=== PATIENT | male | born 1980 | race Two or more races ===

== ENCOUNTER 2016-04-25 23:14 | Emergency (ER) | payer MEDICAID, OTHER ==
[~2016-04-25] VITALS: Ht 167.6 cm; Wt 81.6 kg
[2016-04-25 23:25] VITALS: BP 147/72
[2016-04-26 00:11] LABS: BASOPHILS % (AUTO) 2.1 % (0.0-2.0); EOSINOPHILS % (AUTO) 6.2 % (0.0-3.0); LYMPHOCYTES % (AUTO) 30.2 % (20.0-45.0); MEAN CORPUSCULAR HEMOGLOBIN 30.6 PG (27.0-31.0); MEAN CORPUSCULAR HGB CONC 35.3 G/DL (32.0-36.0); MEAN CORPUSCULAR VOLUME 87 FL (80-99); MEAN PLATELET VOLUME 7.4 FL (6.5-10.1); MONOCYTES % (AUTO) 7.6 % (1.0-10.0); NEUTROPHILS % (AUTO) 53.9 % (45.0-75.0); PLATELET COUNT 125 K/UL (150-450); RED BLOOD COUNT 4.48 M/UL (4.70-6.10); RED CELL DISTRIBUTION WIDTH 11.3 % (11.6-14.8); WHITE BLOOD COUNT 6.2 K/UL (4.8-10.8)
[2016-04-26 00:28] LABS: ALANINE AMINOTRANSFERASE 38 U/L (3-41); ALBUMIN/GLOBULIN RATIO 1.7 (1.0-2.7); ANION GAP 16 (5-15); ASPARTATE AMINO TRANSFERASE 24 U/L (5-40); CALCIUM 9.1 mg/dL (8.6-10.2); CARBON DIOXIDE 26 mEQ/L (20-30); CHLORIDE 98 mEQ/L (98-107); GLOMERULAR FILTRATION RATE > 60 mL/min (>60); HEMOLYSIS 8; LIPASE 38 U/L (< 60); POTASSIUM 4.1 mEQ/L (3.4-4.9); SODIUM 140 mEQ/L (135-145); TOTAL PROTEIN 6.6 g/dL (6.6-8.7)
[2016-04-26 00:30] VITALS: BP 138/75
[2016-04-26 00:30] LABS: TROPONIN I < 0.30 ng/mL (<=0.30)
[2016-04-26] MEDS ORDERED: LORazepam Inj 2mg/ml 1ml IV ONE (01:15)
[2016-04-26 02:30] VITALS: BP 134/78
[2016-04-26 02:40] LABS: APPEARANCE,URINE CLEAR; KETONES,URINE NEGATIVE (NEGATIVE); LEUKOCYTE ESTERASE ,URINE NEGATIVE (NEGATIVE); NITRITE,URINE NEGATIVE (NEGATIVE); PH,URINE 7 (4.5-8.0); PROTEIN,URINE NEGATIVE (NEGATIVE); UROBILINOGEN,URINE 1 MG/DL (0.0-1.0)
[2016-04-26] MEDS ORDERED: MECLIZINE HCL25 MG ORAL (02:44)
--- NOTE | 2016-04-26 02:45 | Emergency Room Report ---
History of Present Illness General Chief Complaint: Dizziness Source: Patient, Medical Record, EMS Present Illness HPI Is a 36-year-old male with a history of mental delay. He lives in a boarding care. He came home from his father's house after dinner. He did not have any symptom until later in the evening. He started complaining of dizziness. Described as room spinning. Worse with turning his head. When he got here, he had nausea and vomiting. No abdominal pain. No fever or chills. Never had this problem before. No other symptoms. Allergies: Coded Allergies: No Known Allergies (Unverified , 02/07/13) Patient History Past Medical History: see triage record, old chart reviewed Past Surgical History: other Pertinent Family History: none Social History: Denies: smoking Immunizations: other Reviewed Nursing Documentation: PMH: Agreed, PSxH: Agreed Nursing Documentation-PMH Hx Hypertension: Yes Hx Pacemaker: Yes Hx Seizures: Yes Review of Systems Eye: Denies: blurred vision, eye pain ENT: Denies: ear pain, nose congestion, throat swelling Respiratory: Denies: cough, shortness of breath Cardiovascular: Denies: chest pain, palpitations Gastrointestinal: Reports: nausea, vomiting, Denies: abdominal pain, diarrhea Musculoskeletal: Denies: back pain, joint pain Skin: Denies: rash Neurological: Denies: headache, numbness Endocrine: Denies: increased thirst, increased urine Hematologic/Lymphatic: Denies: easy bruising All Other Systems: negative except mentioned in HPI Physical Exam Vital Signs Date Time Temp Pulse Resp B/P Pulse Ox O2 Delivery O2 Flow Rate FiO2 04/25/16 23:18 97.5 60 18 131/87 96 Room Air vitals normal Sp02 EP Interpretation: reviewed, normal General Appearance: well appearing, no apparent distress, alert Head: normocephalic, atraumatic Eyes: bilateral eye EOMI, bilateral eye PERRL ENT: hearing grossly normal, normal pharynx Neck: full range of motion, supple, no meningismus Respiratory: chest non-tender, lungs clear, normal breath sounds Cardiovascular #1: regular rate, rhythm, no murmur Gastrointestinal: normal bowel sounds, non tender, no mass, no organomegaly, no bruit, non-distended Musculoskeletal: back normal, gait/station normal, normal range of motion Psychiatric: mood/affect normal Skin: warm/dry Medical Decision Making Diagnostic Impression: Primary Impression: Dizziness Additional Impression: Vertigo ER Course Patient present with dizziness consistent with vertigo. No evidence of central vertigo. No evidence of TIA or CVA. No evidence of arrhythmia. He felt better now. We'll discharge home. Lab Results Impression labs normal CT/MRI/US Diagnostic Results CT/MRI/US Diagnostic Results : Imaging Test Ordered: CT head Impression negative per radiologist Last Vital Signs Date Time Temp Pulse Resp B/P Pulse Ox O2 Delivery O2 Flow Rate FiO2 04/25/16 23:25 97.8 73 15 147/72 98 Room Air Status: improved Disposition: HOME, SELF-CARE Condition: Stable Scripts Meclizine Hcl* (MECLIZINE*) 25 Mg Tablet 25 MG ORAL THREE TIMES A DAY, #30 TAB Prov: DARIN BRITO M.D. 04/26/16 Referrals: [facility],REFERR[facility] (PCP) Patient Instructions: Vertigo Additional Instructions: Followup with your Dr. in 2-3 days. Return if worse. DARIN BRITO M.D. Apr 26, 2016 02:45
[2016-04-26 03:10] LABS: BACTERIA,URINE OCCASIONAL /HPF; MUCUS,URINE FEW /LPF (NONE/OCC); RBC,URINE 0-2 /HPF (0 - 0); SQUAMOUS EPITHELIAL CELL,UR OCCASIONAL /LPF (NONE/OCC)
[2016-04-26 04:21] VITALS: BP 116/50
[2016-04-26 04:30] VITALS: BP 116/50
--- NOTE | 2016-04-26 10:37 | Diagnostic Imaging Report ---
\H\CT Brain without Intravenous Contrast INDICATION: \N\Dizziness.\H\ COMPARISON: \N\None\H\ TECHNIQUE: Serial axial images were obtained from the the skull base through the vertex without intravenous contrast. Coronal reformats were obtained. Dose Estimate: Total DLP \N\1372\H\ mGycm CTDIvol \N\70\H\ mGy FINDINGS: The strong white matter differentiation appears normal. There is no evidence of acute intracranial hemorrhage or territorial infarct. The cortical sulci, ventricles and extra-axial CSF spaces are normal in size for patient's age. There is no space occupying lesion, mass effect or midline shift. The visualized paranasal sinuses and mastoid air cells are clear. The osseous structures are unremarkable. \N\\H\IMPRESSION: 1. No acute intracranial hemorrhage, midline shift or mass effect. \N\
== END 2016-04-26 04:32 | disposition home or self-care (01) ==
LOC: EDBD 23:14 → EDUNIT# 23:14 → EMR 23:33
DX: R42 Dizziness and giddiness (principal); R11.2 Nausea with vomiting, unspecified; I10 Essential (primary) hypertension; Z95.0 Presence of cardiac pacemaker
CPT/HCPCS: 36415; 70450; 80053; 81001; 83690; 84484; 85025; 96360; 96374; 96375; 99284; J2405